=== PATIENT | female | born 1960 | race Caucasian/White ===

== ENCOUNTER 2016-10-23 07:13 | Emergency (ER) | payer MEDICARE, MEDICAID ==
[~2016-10-23] VITALS: Ht 157.5 cm; Wt 114.6 kg
[~2016-10-23 07:13] MED LIST: ATOR10TA64 PO; CARV6.2530 PO; CLOT15CR4 TOP; CYCL-83 PO; DIPH25CA84 PO; FURO40TA70 PO; HYDR-4072 PO; LAMO200T6 PO; LEVE1000 PO; LORA10CA3 PO; LOSA50TA52 PO; NYST1POW4 TOP; OXCA300T PO; OXYC1TAB8 PO; POLY17PO6 PO; POTA10TA92 PO; PROM-21 PO; ROPI1TAB12 PO; SENN8.6T94 PO; WARF5TAB76 PO; WARF6TAB23 PO
[2016-10-23 07:18] VITALS: Ht 157.5 cm; Wt 114.6 kg
--- OUTSIDE RECORDS SUMMARY | 2016-10-23 07:26 | XMS REPORT | Continuity of Care Document ---
Author Author [facility] Organization [facility] Address Unknown Phone Unavailable Support Name Relationship Address Phone KIRILL BARKER MD Caregiver [address] [place] [phone] CHONG BRANHAM MD Caregiver [address] [place] [address] [place] [phone] LUDAALBINO MOSSWhitney Next Of Kin [address] [facility] [place] [address] Insurance Providers Payer Name Policy Number Subscriber Name Relationship Medicare [id number] Sushant Jensen 20 Self Suzanne [employer] [id number] Sushant Jensen 20 Self Advance Directives Directive Response Recorded Date/Time Advanced Directives Type Unable to Obtain 08/12/14 1:11pm Problems Medical Problems Problem Onset Date Status HEADACHE, LEG PAIN Unknown Active Headache Unknown Active bilateral leg pain Unknown Active R TRAPEZIUS STRAIN/SPASM Unknown Active right trapezius strain Unknown Active Chest wall pain Unknown Active Headache Unknown Active Acute bronchitis Unknown Active Chest wall pain Unknown Active UTI (lower urinary tract infection) Unknown Active Back pain Unknown Active Back muscle spasm Unknown Active UTI (lower urinary tract infection) Unknown Active Headache Unknown Active Tremor Unknown Active Headache Unknown Active Medications Medication Dose Route Sig Days/Qty Instructions Order Date Discontinued Date Status Baclofen 10 Mg PO THREE TIMES A DAY 03/10/09 04/24/09 Discontinued Loratadine 10 Mg PO DAILY 09/08/08 07/21/09 Discontinued Carvedilol Phosphate 6.25 Mg PO TWICE A DAY 03/03/10 09/16/10 Discontinued Warfarin Sodium 5 Mg PO DAILY 09/08/08 04/24/09 Discontinued Tolterodine Tartrate 4 Mg PO DAILY 09/08/08 06/02/09 Discontinued Cyclobenzaprine Hcl 10 Mg PO THREE TIMES A DAY 11/17/09 03/03/10 Discontinued Hydrochlorothiazide 50 Mg PO DAILY 09/08/08 07/21/09 Discontinued Lamotrigine 100 Mg PO TWICE A DAY 09/08/08 04/24/09 Discontinued Fluoride Ion/Multivitamins 1 Mg PO DAILY 09/12/09 11/05/09 Discontinued Pantoprazole Sodium 40 Mg PO DAILY 09/08/08 09/12/09 Discontinued Metoclopramide Hcl 10 Mg PO THREE TIMES A DAY 09/08/08 04/24/09 Discontinued [Stool Softner] DAILY 09/08/08 04/24/09 Discontinued Acetaminophen 650 Mg PO NEEDED 09/08/08 07/21/09 Discontinued Hydrocodone Bit/Acetaminophen 1 Tab PO NEEDED 03/10/09 06/02/09 Discontinued Trospium Chloride 20 Mg PO TWICE A DAY 03/10/09 06/02/09 Discontinued Lamotrigine 200 Mg PO TWICE A DAY 03/03/10 Active Warfarin Sodium 7.5 Mg PO DAILY 03/10/09 06/02/09 Discontinued Baclofen 10 Mg PO THREE TIMES A DAY 03/10/09 06/02/09 Discontinued [Senokot] 03/10/09 07/21/09 Discontinued Potassium Chloride 20 Meq PO DAILY 03/10/09 07/21/09 Discontinued Mometasone Furoate 17 Gm NS TWICE A DAY 11/17/09 03/03/10 Discontinued Warfarin Sodium 5 Mg PO DAILY 06/02/09 07/21/09 Discontinued Pregabalin 75 Mg PO TWICE A DAY 06/02/09 07/21/09 Discontinued Loratadine 1 Tab PO DAILY 03/03/10 09/16/10 Discontinued Baclofen 10 Tab PO FOUR TIMES 11/17/09 03/03/10 Discontinued Warfarin Sodium 1 Tab PO DAILY 11/17/09 03/03/10 Discontinued Mometasone Furoate TWICE A DAY 07/21/09 09/12/09 Discontinued Levetiracetam 1 Tab PO QHS 09/12/09 11/05/09 Discontinued Potassium Chloride 1 Tab PO DAILY 03/03/10 08/23/11 Discontinued Furosemide 1 Tab PO DAILY 11/17/09 03/03/10 Discontinued Lisinopril 1 Tab PO DAILY 03/03/10 08/23/11 Discontinued Meclizine Hcl 1 Tab PO NEEDED 03/03/10 03/25/11 Discontinued Metronidazole/Skin Cleanser 1 Pkg TP DAILY 11/17/09 03/03/10 Discontinued Nystatin NEEDED 03/03/10 03/25/11 Discontinued Promethazine Hcl 1 Tab PO NEEDED 03/03/10 Active Trospium Chloride 1 Tab PO TWICE A DAY 11/17/09 03/03/10 Discontinued Hydrocodone Bit/Acetaminophen 1 Tab PO NEEDED 11/17/09 03/03/10 Discontinued [Veg-Lax] 1 Tab PO DAILY 07/21/09 09/12/09 Discontinued [Kapidex] 60 Mg PO DAILY 03/03/10 02/17/12 Discontinued Mometasone Furoate TWICE A DAY 11/17/09 03/03/10 Discontinued Enoxaparin Sodium 09/12/09 11/05/09 Discontinued Sennosides PO DAILY 09/12/09 11/05/09 Discontinued Azithromycin 250 Mg PO DAILY 09/12/09 11/05/09 Discontinued Gabapentin 300 Mg PO THREE TIMES A DAY 11/17/09 03/03/10 Discontinued Montelukast Sodium 10 Mg PO 09/12/09 11/05/09 Discontinued Levetiracetam 1 Tab PO TWICE A DAY 03/03/10 Active Sennosides 1 Tab PO DAILY 03/03/10 02/17/12 Discontinued Furosemide 1 Tab PO DAILY 11/17/09 03/03/10 Discontinued Warfarin Sodium 1 Tab PO 03/03/10 04/21/14 Discontinued [Methocarbamol] 500 NEEDED 11/17/09 03/03/10 Discontinued [Lortab 10] 10 Mg NEEDED 11/17/09 03/03/10 Discontinued Hydrocodone Bit/Acetaminophen 1 - 2 Tab PO NEEDED 03/03/10 Discontinued Warfarin Sodium 1 Tab PO BEDTIME 03/03/10 08/23/11 Discontinued Furosemide 1 Tab PO TWICE A DAY 03/03/10 Active Carvedilol 6.25 Mg PO TWICE A DAY 09/16/10 Active Loratadine 10 Mg PO DAILY 09/16/10 08/23/11 Discontinued Multivitamins 1 Tab PO DAILY 09/16/10 03/25/11 Discontinued Fexofenadine Hcl 30 Mg PO DAILY 09/16/10 08/23/11 Discontinued Potassium Chloride 10 Meq PO TWICE A DAY 08/23/11 Active Warfarin Sodium 6 Mg PO DAILY 08/23/11 Active Gabapentin 300 Mg PO DAILY 08/23/11 Active Benzonatate 200 Mg PO TWICE A DAY 08/23/11 08/21/12 Discontinued Esomeprazole Mag Trihydrate 20 Mg PO DAILY 08/23/11 Active Cyclobenzaprine Hcl 10 Mg PO TID PRN 08/23/11 Active Fexofenadine Hcl 180 Mg PO DAILY 08/23/11 08/21/12 Discontinued Nystatin TOP NEEDED 08/23/11 08/21/12 Discontinued Multivitamins 1 Tab PO DAILY 02/17/12 08/21/12 Discontinued Tramadol Hcl 50 Mg PO NEEDED 02/17/12 Active Melatonin/Pyridoxine 1 Tab PO BEDTIME 03/13/12 08/21/12 Discontinued Ketorolac Tromethamine 1 Tab PO NEEDED 20 Qty QID prn 08/21/12 Active Hydrocodone Bit/Acetaminophen 1 Tab PO EVERY 4-6 HOURS PRN PAIN 02/2706/15/13 Discontinued Losartan Potassium 50 Mg PO DAILY 02/27/13 Active Loratadine 10 Mg PO DAILY 02/27/13 Active Hydrocodone Bit/Acetaminophen 1 Each PO NEEDED 06/15/13 Active Baclofen 5 Mg PO THREE TIMES A DAY 06/15/13 Active Methocarbamol 750 Mg PO FOUR TIMES DAILY 04/21/14 Active Diclofenac Sodium 75 Mg PO TWICE DAILY WITH MEALS 20 Qty 04/21/14 Active Oxcarbazepine 300 Mg PO DAILY 08/12/14 Active Oxcarbazepine 600 Mg PO DAILY 08/12/14 Active Social History Social History Problem Response Recorded Date/Time Chewing Tobacco Status No 09/10/2013 4:07pm Hx Substance Use No 08/12/2014 2:49pm Hx Alcohol Use No 08/12/2014 2:49pm Tobacco Usage none 04/21/2014 8:45am Query Response Start Date Stop Date Smoking Status Unknown if ever smoked Hospital Discharge Instructions No hospital discharge instructions. Plan of Care No plan of care. Functional Status Query Response Date Recorded Physical Hygiene Self August 12, 2014 2:49pm Disabilities None August 12, 2014 2:49pm Devices Used None August 12, 2014 2:49pm Dressing Assist August 12, 2014 2:49pm Ambulation Assist August 12, 2014 2:49pm Diet Self August 12, 2014 2:49pm Mental Status Alert Oriented August 12, 2014 2:49pm Disabilities None August 12, 2014 2:49pm Devices Used None August 12, 2014 2:49pm Physical Hygiene Self August 12, 2014 2:49pm Dressing Assist August 12, 2014 2:49pm Ambulation Assist August 12, 2014 2:49pm Diet Self August 12, 2014 2:49pm Allergies, Adverse Reactions, Alerts Allergen Type Severity Reaction Status Last Updated Penicillin Allergy Unknown Active 08/12/14 Carisoprodol Allergy Unknown Active 08/12/14 Immunizations Name Given Type Hx Influenza Vaccination Y MAR 2012 Historical Hx Pneumococcal Vaccination Y 2008 Historical Hx Tetanus, Diptheria, Pertussis No Historical Hx Influenza Vaccination Y MAR 2012 Historical Hx Tetanus Diptheria Y 2008 Historical Hx Tetanus, Diptheria, Pertussis No Historical Hx Tetanus Toxoid Vaccination No Historical Vital Signs Acute Vital Signs Vital Response Date/Time Temperature (Fahrenheit) 97.8 deg F (96.8 - 99.1) Temperature (Calculated Celsius) 36.95079 degrees C (36.0 - 37.3) Pulse Rate (adult) 90 bpm (60 - 100) Respiratory Rate 18 breaths/min (10 - 20) O2 Sat by Pulse Oximetry 97 % (90 - 100) Blood Pressure 141/84 mm Hg Height 5 ft 3 in Weight 278 lb Body Mass Index 49.0 kg/m^2 Results Test Source Date Result Interp. Ref. Range Comments Activated Partial Thromboplast Time August 12, 2014 1:55pm 39.2 SEC H 24- 36 Alanine Aminotransferase (ALT/SGPT) August 12, 2014 1:55pm 23 U/L N 9-52 Albumin August 12, 2014 1:55pm 4.1 G/DL N 3.5-5.0 Albumin/Globulin Ratio August 12, 2014 1:55pm 1.1 RATIO N 1.1-2.2 Alkaline Phosphatase August 12, 2014 1:55pm 74 U/L N 38-126 Amylase Level April 21, 2014 9:03am < 30 U/L L 30-110 Anion Gap August 12, 2014 1:55pm 11 MEQ/L N 5-15 Aspartate Amino Transf (AST/SGOT) August 12, 2014 1:55pm 30 U/L N 14-36 B-Type Natriuretic Peptide March 25, 2011 4:12pm 17 PG/ML N 15-100 BUN/Creatinine Ratio August 12, 2014 1:55pm 19 RATIO N 6-26 Band Neutrophils # June 02, 2009 1:00pm 0.1 T/MM3 - Band Neutrophils % June 02, 2009 1:00pm 1.0 % N 0-6 Basophils # (Auto) August 12, 2014 1:55pm 0.0 T/MM3 N 0-0.2 Basophils (%) (Auto) August 12, 2014 1:55pm 0.4 % N 0-2 Blood Urea Nitrogen August 12, 2014 1:55pm 17.0 MG/DL N 7-17 Calcium Level August 12, 2014 1:55pm 9.5 MG/DL N 8.4-10.2 Calculated Osmolality August 12, 2014 1:55pm 277 MOSM/KG N 261-280 Carbon Dioxide Level August 12, 2014 1:55pm 28 MEQ/L N 22-30 Chemistry Specimen Hemolysis August 12, 2014 1:55pm 53 H 0-25 0-25: No Hemolysis.26-70: Slight Hemolysis - can falsely elevate K and Urine Protein. 71-285: Moderate Hemolysis - can falsely elevate K, Troponin I, CA 19-9, PTH, CSF GLucose, and Urine Protein, and can falsely decrease Phenytoin. 286-999: Gross Hemolysis - can falsely elevate K, Troponin I, CA 19-9, PTH, CSF Glucose, and Urine Protine, and can falsely decrease Phenytoin. Recommend specimen recollection. Chloride Level August 12, 2014 1:55pm 104 MEQ/L N 98-107 Conjugated Bilirubin February 17, 2012 11:45am 0.00 MG/DL N 0.00-0.30 Creatinine August 12, 2014 1:55pm 0.9 MG/DL N 0.7-1.2 Eosinophils # (Auto) August 12, 2014 1:55pm 0.5 T/MM3 N 0-0.5 Eosinophils # (Manual) June 02, 2009 1:00pm 0.8 T/MM3 H 0-0.5 Eosinophils % (Manual) June 02, 2009 1:00pm 11.0 % H 0-4 Eosinophils (%) (Auto) August 12, 2014 1:55pm 6.9 % H 0-4 Free Thyroxine March 25, 2011 4:12pm 1.04 NG/DL N 0.78-2.19 Globulin August 12, 2014 1:55pm 3.7 G/DL H 2.4-3.6 Glomerular Filtration Rate Calc August 12, 2014 1:55pm 66 - Glucose Level August 12, 2014 1:55pm 103 MG/DL N 65-110 Hematocrit August 12, 2014 1:55pm 41.6 % N 36-46 Hemoglobin August 12, 2014 1:55pm 13.7 GM/DL N 12-16 Icterus Index August 12, 2014 1:55pm < 2 0-7 Immature Granulocyte # (Auto) August 12, 2014 1:55pm 0.01 T/MM3 N 0.00- 0.03 Immature Granulocyte % (Auto) August 12, 2014 1:55pm 0.1 % N 0.0-0.5 Influenza Type A Antigen August 12, 2014 2:25pm Negative - Negative for Flu A protein antigen. Assay sensitivity is90%. Influenza Type B Antigen August 12, 2014 2:25pm Negative - Negative for Flu B protein antigen. Assay sensitivity is90%. Lab Scanned Report March 06, 2010 10:30am REFERENCE LAB [id number] - Lamotrigine (Lamictal) Level March 03, 2010 4:05pm Ref lab rpt scanned - --- 03/06/10 1244 ---LAMO previously reported as: SEND OUT Levetiracetam (Keppra) Level March 03, 2010 4:05pm Ref lab rpt scanned - --- 03/06/10 1244 ---LEVET previously reported as: SEND OUT Lipase April 21, 2014 9:03am 85 U/L N 23-300 Lymphocytes # (Auto) August 12, 2014 1:55pm 2.5 T/MM3 N 1-4.8 Lymphocytes # (Manual) June 02, 2009 1:00pm 2.3 T/MM3 N 1-4.8 Lymphocytes % (Manual) June 02, 2009 1:00pm 33.0 % N 23-45 Lymphocytes (%) (Auto) August 12, 2014 1:55pm 36.4 % N 23-45 Mean Corpuscular Hemoglobin August 12, 2014 1:55pm 29.9 UUG N 26-34 Mean Corpuscular Hemoglobin Concent August 12, 2014 1:55pm 32.9 GM/DL N 31-37 Mean Corpuscular Volume August 12, 2014 1:55pm 90.8 UM3 N 80-100 Mean Platelet Volume August 12, 2014 1:55pm 9.5 UM3 N 9.4-12.4 Monocytes # (Auto) August 12, 2014 1:55pm 0.7 T/MM3 N 0-0.8 Monocytes # (Manual) June 02, 2009 1:00pm 0.5 T/MM3 N 0-0.8 Monocytes % (Manual) June 02, 2009 1:00pm 7.0 % N 0-9.0 Monocytes (%) (Auto) August 12, 2014 1:55pm 9.6 % H 0-9.0 Neutrophils # (Auto) August 12, 2014 1:55pm 3.3 T/MM3 N 1.8-7.7 Neutrophils # (Manual) June 02, 2009 1:00pm 3.3 T/MM3 N 1.8-7.7 Neutrophils % (Manual) June 02, 2009 1:00pm 48.0 % N 33-66 Neutrophils (%) (Auto) August 12, 2014 1:55pm 46.6 % N 33-66 Platelet Count August 12, 2014 1:55pm 288 T/MM3 N 130-400 Potassium Level August 12, 2014 1:55pm 4.7 MEQ/L N 3.6-5 Prealbumin September 12, 2009 12:45pm 22.9 MG/DL N 17.6-36.0 Prolactin September 12, 2009 12:45pm 12.8 NG/ML - Male: 3.3 - 20.8 ng/ mLFemale: Premenopausal: 2.1 - 47.6 ng/mL, Postmenopausal: 0 - 41.4 ng/mL Prothromb Time International Ratio August 12, 2014 1:55pm 2.26 H 0.81- 1.09 THERAPUTIC RANGE=2.00-3.00 FOR ANTI-THROMBOSIS THERAPUTIC RANGE=2.50- 3.50 FOR IMPLANTED VALVE RDW Standard Deviation August 12, 2014 1:55pm 45.1 FL N 36.9-50.2 Red Blood Count August 12, 2014 1:55pm 4.58 M/MM3 N 4.00-5.20 Sodium Level August 12, 2014 1:55pm 143 MEQ/L N 134-144 Tests Not Done September 12, 2009 12:30pm Not done - Has specimen been collected/obtained? Y Thyroid Stimulating Hormone (TSH) March 25, 2011 4:12pm 1.50 MIU/L N 0.47-4.68 Total Bilirubin August 12, 2014 1:55pm 0.30 MG/DL N 0.20-1.30 Total Creatine Kinase April 11, 2009 11:13am 64 U/L N 30-135 Total Protein August 12, 2014 1:55pm 7.8 G/DL N 6.3-8.2 Troponin I August 12, 2014 1:55pm < 0.012 ng/ml 0-0.12 Turbidity August 12, 2014 1:55pm < 20 0-20 Unconjugated Bilirubin February 17, 2012 11:45am 0.00 MG/DL N 0.00- 1.10 Urinalysis Comment August 12, 2014 1:55pm Microscopic not ind. - Has specimen been collected/obtained? Y Urine Bacteria April 21, 2014 9:19am None seen - Has specimen been collected/obtained? Y Urine Bilirubin August 12, 2014 1:55pm Negative - Has specimen been collected/obtained? Y Urine Blood August 12, 2014 1:55pm Negative - Has specimen been collected/obtained? Y Urine Collection Type August 12, 2014 1:55pm Cleancatch-midstream - Has specimen been collected/obtained? Y Urine Color August 12, 2014 1:55pm Yellow - Has specimen been collected/obtained? Y Urine Culture Indicated February 17, 2012 10:48am Cult reflexed &setup - Has specimen been collected/obtained? Y Urine Glucose (UA) August 12, 2014 1:55pm Negative - Has specimen been collected/obtained? Y Urine Ketones August 12, 2014 1:55pm Negative - Has specimen been collected/obtained? Y Urine Leukocyte Esterase August 12, 2014 1:55pm Negative - Has specimen been collected/obtained? Y Urine Nitrite August 12, 2014 1:55pm Negative - Has specimen been collected/obtained? Y Urine Protein August 12, 2014 1:55pm Negative - Has specimen been collected/obtained? Y Urine RBC April 21, 2014 9:19am 0-1 /HPF - Has specimen been collected/obtained? Y Urine Specific [place] August 12, 2014 1:55pm 1.010 L - Has specimen been collected/obtained? Y Urine Squamous Epithelial Cells February 17, 2012 10:48am Many - Has specimen been collected/obtained? Y Urine Turbidity August 12, 2014 1:55pm Clear - Has specimen been collected/obtained? Y Urine Urobilinogen August 12, 2014 1:55pm 0.2 EU/DL - Has specimen been collected/obtained? Y Urine WBC April 21, 2014 9:19am 0-1 /HPF - Has specimen been collected/obtained? Y Urine pH August 12, 2014 1:55pm 6.5 - Has specimen been collected/ obtained? Y Vitamin B12 Level September 12, 2009 12:45pm 561 PG/ML N 239-931 White Blood Count August 12, 2014 1:55pm 7.0 T/MM3 N 4.5-11.0 Blood Culture Blood September 08, 2008 4:20pm NO GROWTH AFTER 5 DAYS Urine Culture Urine, Clean Catch Voided February 17, 2012 11:23am Diphtheroid Bacillus Procedures No known history of procedures. Encounters Encounter Location Date/Time Departed Emergency Room [facility] 08/12/14 1:11pm Recent Diagnosis
--- OUTSIDE RECORDS SUMMARY | 2016-10-23 07:26 | XMS REPORT | Continuity of Care Document ---
Author Author [facility] Organization [facility] Address Unknown Phone Unavailable Allergies Active Description Code Type Severity Reaction Onset Reported/Identified Relationship to Patient Clinical Status Yes carisoprodol carisoprodol Drug Allergy Unknown N/A 01/28/2009 Yes Penicillins Penicillins Drug Allergy Unknown N/A 01/28/2009 Yes morphine morphine Drug Allergy Unknown N/A 02/09/2009 Medications Problems Procedures Results Test Result Range PROTHROMBIN TIME WITH INR - 04/04/16 10:15 INTERNATIONAL NORMAL RATIO 1.4 0.9-1.1 PROTHROMBIN TIME 15.9 sec 10.0-12.9 Encounters ACCT No. Visit Date/Time Discharge Status Pt. Type Provider Facility Loc./Unit Complaint [id number] 08/08/2013 14:18:00 08/08/2013 23 :59:59 [facility] Outpatient
--- OUTSIDE RECORDS SUMMARY | 2016-10-23 07:27 | XMS REPORT | Continuity of Care Document ---
Author Author Organization Address Unknown Phone Unavailable Support Name Relationship Address Phone NATI HEMPHILL MD Caregiver [address] [place] [address] Unavailable CHONG BRANHAM MD Caregiver [address] [place] [address] [place] [address] Unavailable BLANQUITA LARES Next Of Kin [address] [place] [address] Insurance Providers Guarantor Sushant Jensen J Address [address] [place] [address] Phone [phone] - SISTER Email DENIED/08/05/16 Payer [facility] [employer] Policy Number [id number] Subscriber's Name Sushant Jensen Relationship 18 Self Effective Date 16 Expiration Date 16 Payer Medicare Policy Number [id number] Subscriber's Name Sushant Jensen Relationship 18 Self Effective Date 07 Chief Complaint and Reason for Visit Chief Complaint Dyspnea/Respdistress Reason for Visit [id number] Problems Active Problems Medical Problem Onset Date Status Acute bronchitis Unknown Acute Back muscle spasm Unknown Acute Back pain Unknown Acute Chest wall pain Unknown Acute Chest wall pain Unknown Acute Fibromyalgia affecting multiple sites Unknown Acute HEADACHE, LEG PAIN Unknown Acute Headache Unknown Acute Headache Unknown Acute Headache Unknown Acute Headache Unknown Acute Headache Unknown Acute R TRAPEZIUS STRAIN/SPASM Unknown Acute Tremor Unknown Acute UTI (lower urinary tract infection) Unknown Acute UTI (lower urinary tract infection) Unknown Acute bilateral leg pain Unknown Acute right trapezius strain Unknown Acute Past Problems Medical Problem Onset Date Abdominal pain Unknown Rib pain on left side Unknown Right otitis externa Unknown Viral syndrome Unknown Medications Current Home Medications Medication Dose Units Route Directions Days Qty Instructions Start Date Atorvastatin Calcium 10 Mg Tablet 10 Mg Oral Daily 07/26/15 Carvedilol (Coreg) 6.25 Mg Tablet 12.5 Mg Oral Twice A Day Clotrimazole/Betamethasone Dip (Lotrisone Cream) 15 Gm Cream..g. 1 Applic Topically Twice A Day 06/10/16 Cyclobenzaprine Hcl (Flexeril) 10 Mg Tablet 10 Mg Oral Three Times A Day as needed for Prn Orders 08/23/11 Diphenhydramine Hcl (Benadryl) 25 Mg Capsule 25-50 Mg Oral As Needed as needed for Allery Symptoms 07/26/15 Furosemide (Lasix) 40 Mg Tablet 60 Mg Oral Every Morning 03/03/10 Hydrocodone/Acetaminophen (Hydrocodon-Acetaminoph 7.5-325) 1 Each Tablet 1 Tab Oral Every 4 Hours as needed for Pain 07/26/15 Lamotrigine (Lamictal) 200 Mg Tablet 200 Mg Oral Twice A Day 02/04 Levetiracetam (Keppra) 1,000 Mg Tablet 1,000 Mg Oral Twice A Day 03/03/10 Loratadine (Claritin) 10 Mg Capsule 10 Mg Oral Daily 02/27/13 Losartan Potassium 50 Mg Tablet 50 Mg Oral Bedtime 02/27/13 Nystatin 1 Each Powder.ea. 1 Applic Topically As Needed as needed for Rash 12/03/14 Oxcarbazepine (Trileptal) 300 Mg Tablet 300 Mg Oral Twice A Day Take one tablet, by mouth, two times a day. 06/10/16 Oxycodone Hcl/Acetaminophen (Percocet 5-325 Mg Tablet) 5-325 Tablet 1-2 Tab Oral Every 6 Hr Prn as needed for Pain 30 Tablet Take 1 tablet, by mouth, every 4 hours as needed for pain. 06/12/16 Polyethylene Glycol 3350 (Miralax) 17 Gm Powd.pack 1 Packet Oral Daily 30 Packet 06/12/16 Potassium Chloride (Klor-Con 10) 10 Meq Tablet.sa 10 Meq Oral Twice A Day 08/23/11 Promethazine Hcl (Phenergan) 25 Mg Tablet 25 Mg Oral Four Times Daily as needed for Nausea 03/03/10 Ropinirole Hcl 1 Mg Tablet 1 Mg Oral Three Times A Day as needed for Prn Orders 12/20/15 Sennosides (Senokot) 8.6 Mg Tablet 8.6 Mg Oral Daily as needed for Constipation 07/26/15 Warfarin Sodium (Coumadin) 5 Mg Tablet 5 Mg Oral 3 Times A Week 06/11/16 Warfarin Sodium (Coumadin) 6 Mg Tablet 1 Tab Oral 4 Times A Week 90 Tablet 06/11/16 Past Home Medications Medication Directions Ordered Status Acetaminophen (Tylenol 8 Hour) 650 Mg Tablet.sa, 650 Mg Oral As Needed Discontinued Azithromycin 250 Mg Tablet, 250 Mg Oral Daily 07/26/15 Discontinued Azithromycin 250 Mg Tablet, 250 Mg Oral Daily 09/12/09 Discontinued Baclofen 10 Mg Tablet, 10 Tab Oral Four Times 11/17/09 Discontinued Baclofen 10 Mg Tablet, 10 Mg Oral Three Times A Day 03/10/09 Discontinued Baclofen 10 Mg Tablet, 10 Mg Oral Three Times A Day 03/10/09 Discontinued Benzonatate 200 Mg Capsule, 200 Mg Oral Three Times A Day as needed for Cough 07/26/15 Discontinued Benzonatate (Tessalon Perles 100MG) 100 Mg Capsule, 200 Mg Oral Twice A Day 08/23/11 Discontinued Carvedilol Phosphate (Coreg Cr) 10 Mg Cpmp.24hr, 6.25 Mg Oral Twice A Day 02/04 Discontinued Cephalexin (Keflex) 500 Mg Capsule, 1 Cap Oral Three Times A Day 08/31/15 Discontinued Cyclobenzaprine Hcl (Flexeril) 10 Mg Tablet, 10 Mg Oral Three Times A Day 19/03 Discontinued Diclofenac Sodium 75 Mg Tablet.dr, 1 Tab Oral Twice A Day 07/26/15 Discontinued Enoxaparin Sodium (Lovenox) 100 Mg/Ml Disp.syrin, 09/12/09 Discontinued Fexofenadine Hcl (Melina) 180 Mg Tablet, 180 Mg Oral Daily 08/23/11 Discontinued Fexofenadine Hcl (Melina) 30 Mg Tablet, 30 Mg Oral Daily 09/16/10 Discontinued Fluoride Ion/Multivitamins (Multi Vitamins W/Fl 1 Mg Tab) 1 Mg Tab.chew, 1 Mg Oral Daily 09/12/09 Discontinued Furosemide (Lasix) 40 Mg Tablet, 1 Tab Oral Daily 11/17/09 Discontinued Furosemide (Lasix) 20 Mg Tablet, 1 Tab Oral Daily 11/17/09 Discontinued Gabapentin 300 Mg Capsule, 300 Mg Oral Three Times A Day 11/17/09 Discontinued Hydrochlorothiazide 50 Mg Tablet, 50 Mg Oral Daily 09/08/08 Discontinued Hydrocodone Bit/Acetaminophen (Lortab 5) 1 Tab Tablet, 1 Tab Oral Every 4-6 Hours as needed for Pain 02/27/13 Discontinued Hydrocodone Bit/Acetaminophen ([place] 7.5/325 Tablet) 1 Tab Tablet, 1 - 2 Tab Oral As Needed 03/03/10 Discontinued Hydrocodone Bit/Acetaminophen ([place] 5/500 Capsule) 1 Cap Capsule, 1 Tab Oral As Needed 11/17/09 Discontinued Hydrocodone Bit/Acetaminophen (Vicodin 5/500 Tablet) 1 Tab Tablet, 1 Tab Oral As Needed 03/10/09 Discontinued Kapidex , 60 Mg Oral Daily 03/03/10 Discontinued Lamotrigine (Lamictal) 100 Mg Tablet, 100 Mg Oral Twice A Day 09/08/08 Discontinued Levetiracetam (Keppra) 500 Mg Tablet, 1 Tab Oral Qhs 09/12/09 Discontinued Lisinopril 10 Mg Tablet, 1 Tab Oral Daily 03/03/10 Discontinued Loratadine (Alavert) 10 Mg Tablet, 10 Mg Oral Daily 09/16/10 Discontinued Loratadine (Allergy Relief) 10 Mg Tablet, 1 Tab Oral Daily 03/03/10 Discontinued Loratadine (Claritin) 10 Mg Tablet, 10 Mg Oral Daily 09/08/08 Discontinued Lortab 10 , 10 Mg As Needed 11/17/09 Discontinued Meclizine Hcl 25 Mg Tablet, 1 Tab Oral As Needed 03/03/10 Discontinued Melatonin/Pyridoxine (Melatonin 3 Mg Tablet) 1 Tab Tablet, 1 Tab Oral Bedtime 03/13/12 Discontinued Methocarbamol , 500 As Needed 11/17/09 Discontinued Metoclopramide Hcl (Reglan) 10 Mg Tablet, 10 Mg Oral Three Times A Day Discontinued Metronidazole/Skin Cleanser (Metrogel 1% Kit) 1 Ea Combo..pkg, 1 Pkg Topical Daily 11/17/09 Discontinued Mometasone Furoate (Nasonex) 17 Gm [place], 17 Gm Nasal Twice A Day 11/17/09 Discontinued Mometasone Furoate ([place]) 15 Gm Cream.gm., Twice A Day 11/17/09 Discontinued Mometasone Furoate (El[place]) 15 Gm Cream.gm., Twice A Day 07/21/09 Discontinued Montelukast Sodium (Singulair) 10 Mg Tablet, 10 Mg Oral 09/12/09 Discontinued Multivitamins (Multivitamin) 1 Tab Tablet, 1 Tab Oral Daily 02/17/12 Discontinued Multivitamins (Multivitamin) 1 Tab Tablet, 1 Tab Oral Daily 09/16/10 Discontinued Nystatin (Nystop) 15 Gm Powder, Topically As Needed 08/23/11 Discontinued Nystatin (Nystop) 15 Gm Powder, As Needed 03/03/10 Discontinued Oxycodone Hcl/Acetaminophen (Percocet 5-325 Mg Tablet) 5-325 Tablet, 1-2 Tab Oral Every 6 Hr Prn as needed for Pain 06/10/16 Discontinued Pantoprazole Sodium (Protonix) 40 Mg Tablet.dr, 40 Mg Oral Daily 09/08/08 Discontinued Potassium Chloride (Klor-Con M20) 20 Meq Tab.prt.sr, 1 Tab Oral Daily Discontinued Potassium Chloride (K-Dur) 20 Meq Tab.prt.sr, 20 Meq Oral Daily 03/10/09 Discontinued Pregabalin (Lyrica) 75 Mg Capsule, 75 Mg Oral Twice A Day 06/02/09 Discontinued Sennosides (Vegetable Laxative) 8.6 Mg Tablet, 1 Tab Oral Daily 03/03/10 Discontinued Sennosides (Senna Lax) 8.6 Mg Tablet, Oral Daily 09/12/09 Discontinued Senokot , 03/10/09 Discontinued Stool Softner , Daily 09/08/08 Discontinued Tolterodine Tartrate (Detrol La) 4 Mg Cap.sr.24h, 4 Mg Oral Daily 09/08/08 Discontinued Trospium Chloride (Sanctura) 20 Mg Tablet, 1 Tab Oral Twice A Day 11/17/09 Discontinued Trospium Chloride (Sanctura) 20 Mg Tablet, 20 Mg Oral Twice A Day 03/10/09 Discontinued Veg-Lax Tablet, 1 Tab Oral Daily 07/21/09 Discontinued Warfarin Sodium 5 Mg Tablet, 1 Tab Oral 03/03/10 Discontinued Warfarin Sodium (Coumadin) 4 Mg Tablet, 1 Tab Oral Bedtime 03/03/10 Discontinued Warfarin Sodium (Coumadin) 6 Mg Tablet, 1 Tab Oral Daily 11/17/09 Discontinued Warfarin Sodium (Coumadin) 5 Mg Tablet, 5 Mg Oral Daily 06/02/09 Discontinued Warfarin Sodium (Coumadin) 7.5 Mg Tablet, 7.5 Mg Oral Daily 03/10/09 Discontinued Warfarin Sodium (Coumadin) 5 Mg Tablet, 5 Mg Oral Daily 09/08/08 Discontinued Social History Social History Problem Response Recorded Date/Time Onset Date Status Chewing Tobacco Status No 09/10/2013 4:07pm Not Applicable Not Applicable Hx Substance Use No 08/05/2016 12:32am Not Applicable Not Applicable Hx Alcohol Use No 08/05/2016 12:32am Not Applicable Not Applicable Tobacco Usage none 04/21/2014 8:45am Not Applicable Not Applicable Query Response Start Date Stop Date Smoking Status Never smoker Hospital Discharge Instructions No hospital discharge instructions. Plan of Care Discharge Date 08/05/16 2:30am Disposition 01 DISCHARGED HOME, SELF-CARE Condition at Discharge Improved Instructions/Education Provided Viral Syndrome (ED) Prescriptions See Medication Section Referrals CHONG BRANHAM MD Address: [address] [place] [address] [place] [phone] Additional Instructions/Education Take your routine medications as prescribed Albuterol nebulized treatments at least 4 times daily as needed for shortness of breath See your doctor later this week if not improving Care Plan and Goals Physician Care Plan Problem: Viral syndrome with dyspnea, positional leg edema Goal: Follow up with primary care provider Instructions: Take medications and follow care plan as discussed/written Take your routine medications as prescribed Albuterol nebulized treatments at least 4 times daily as needed for shortness of breath See your doctor later this week if not improving Functional Status No functional status results. Allergies, Adverse Reactions, Alerts Allergen Type Severity Reaction Status Last Updated Penicillin Allergy Unknown Active 08/05/16 Immunizations Query Response on File Recorded Date/Time Hx Influenza Vaccination Y 201406/11/16 10:27am Hx Pneumococcal Vaccination Y 201406/11/16 10:27am Hx Tetanus, Diptheria, Pertussis No 12/03/14 3:00pm Hx Influenza Vaccination Y 201406/11/16 10:27am Hx Tetanus Diptheria Y 200812/03/14 3:00pm Hx Tetanus, Diptheria, Pertussis No 12/03/14 3:00pm Hx Tetanus Toxoid Vaccination No 08/21/12 12:33pm Influenza Vaccine Hx FALL 201408/05/16 12:32am Tetanus Diptheria Vaccine History UNKNOWN 08/05/16 12:32am Vital Signs Acute Vital Signs Vital Response Date/Time Temperature (Fahrenheit) 98.2 deg F (96.8 - 99.1) 08/05/2016 12:29am Temperature (Calculated Celsius) 36.94529 degrees C (36.0 - 37.3) 08/05/2016 12:29am Temperature Source Oral 06/13/2016 12:24pm Pulse Rate (adult) 70 bpm (60 - 100) 08/05/2016 2:30am Respiratory Rate 19 breaths/min (10 - 20) 08/05/2016 2:30am O2 Sat by Pulse Oximetry 95 % (90 - 100) 08/05/2016 2:30am Oxygen Delivery Method Room Air 06/13/2016 12:24pm Oxygen Delivery Method Room Air 06/13/2016 9:51am Oxygen Flow Rate 1.00 L/min 06/12/2016 10:00pm Fraction of Inspired Oxygen (FIO2) 21 % 06/12/2016 7:24pm Blood Pressure 148/65 mm Hg 08/05/2016 2:30am Blood Pressure Source Automatic Cuff 06/13/2016 12:24pm Height (Feet) 5 feet 08/05/2016 12:29am Height (Inches) 2.00 inches 08/05/2016 12:29am Weight (Kilograms) 119.600 kg 08/05/2016 12:29am Body Mass Index (BMI) 48.0 08/05/2016 12:29am Results Laboratory Results Test Name Result Units Flags Reference Collection Date/Time Result Date/ Time Comments White Blood Count 6.1 T/MM3 4.5-11.0 08/05/2016 12:57am 08/05/2016 1: 08am Red Blood Count 4.39 M/MM3 4.00-5.20 08/05/2016 12:57am 08/05/2016 1: 08am Hemoglobin 13.3 GM/DL 12-16 08/05/2016 12:57am 08/05/2016 1:08am Hematocrit 40.0 % 36-46 08/05/2016 12:57am 08/05/2016 1:08am Mean Corpuscular Volume 91.1 UM3 80-100 08/05/2016 12:57am 08/05/2016 1 :08am Mean Corpuscular Hemoglobin 30.3 UUG 26-34 08/05/2016 12:57am 2016 1:08am Mean Corpuscular Hemoglobin Concent 33.3 GM/DL 31-37 08/05/2016 12:57am 08/05/2016 1:08am RDW Standard Deviation 45.9 FL 36.9-50.2 08/05/2016 12:57am 08/05/2016 1:08am Platelet Count 296 T/MM3 130-400 08/05/2016 12:57am 08/05/2016 1:08am Mean Platelet Volume 10.2 UM3 9.4-12.4 08/05/2016 12:57am 08/05/2016 1: 08am Neutrophils (%) (Auto) 33.8 % 33-66 08/05/2016 12:57am 08/05/2016 1: 08am Lymphocytes (%) (Auto) 51.0 % H 23-45 08/05/2016 12:57am 08/05/2016 1: 08am Monocytes (%) (Auto) 8.2 % 0-9.0 08/05/2016 12:57am 08/05/2016 1:08am Eosinophils (%) (Auto) 6.7 % H 0-4 08/05/2016 12:57am 08/05/2016 1:08am Basophils (%) (Auto) 0.3 % 0-2 08/05/2016 12:57am 08/05/2016 1:08am Immature Granulocyte % (Auto) 0.0 % 0.0-0.5 08/05/2016 12:57am 2016 1:08am Absolute Neutrophils (auto) 2.1 T/MM3 1.8-7.7 08/05/2016 12:57am 2016 1:08am Absolute Lymphocytes (auto) 3.1 T/MM3 1-4.8 08/05/2016 12:57am 2016 1:08am Absolute Monocytes (auto) 0.5 T/MM3 0-0.8 08/05/2016 12:57am 2016 1:08am Absolute Eosinophils (auto) 0.4 T/MM3 0-0.5 08/05/2016 12:57am 2016 1:08am Absolute Basophils (auto) 0.0 T/MM3 0-0.2 08/05/2016 12:57am 2016 1:08am Absolute Immature Granulocyte (auto 0.00 T/MM3 0.00-0.03 08/05/2016 12: 57am 08/05/2016 1:08am Prothromb Time International Ratio 2.23 H 0.76-1.04 08/05/2016 12:57am 08/05/2016 2:11am THERAPUTIC RANGE=2.00-3.00 FOR ANTI-THROMBOSIS THERAPUTIC RANGE=2.50-3.50 FOR IMPLANTED VALVE Icterus Index < 2 0-7 08/05/2016 1:08/05/2016 1:59am --- 08/05 --- ICTERUS previously reported as: < 2 Chemistry Specimen Hemolysis 71 H 0-25 08/05/2016 1:08/05/2016 1: 59am --- 08/05/16157 --- HEMOLYSIS previously reported as: 71 H 71-285: Specimen Exhibited Moderate Hemolysis - can falsely elevate K (Potassium), Troponin I, CA 19-9, PTH, CSF Glucose, Urine Protein, and can falsely decrease Phenytoin. Turbidity < 20 0-20 08/05/2016 1:08/05/2016 1:59am --- 157 --- TURBIDITY previously reported as: < 20 Sodium Level 140 MEQ/L 134-144 08/05/2016 1:08/05/2016 1:57am Potassium Level 6.0 MEQ/L H 3.6-5 08/05/2016 1:08/05/2016 1:59am 286-9999: Specimen Exhibited Gross Hemolysis - can falsely elevate K (Potassium), Troponin I, CA 19-9. PTH, CSF Glucose, Urine Protein, and falsely decrease Phenytoin. Recommend specimen recollection. Chloride Level 109 MEQ/L H 98-107 08/05/2016 1:08/05/2016 1:40am Carbon Dioxide Level 24 MEQ/L 22-30 08/05/2016 1:08/05/2016 1: 40am Anion Gap 7 MEQ/L 5-15 08/05/2016 1:08/05/2016 1:57am Blood Urea Nitrogen 16.0 MG/DL 7-17 08/05/2016 1:08/05/2016 1: 40am Creatinine 0.8 MG/DL 0.7-1.2 08/05/2016 1:08/05/2016 1:40am BUN/Creatinine Ratio 20 RATIO 6-26 08/05/2016 1:08/05/2016 1:40am Glomerular Filtration Rate Calc 75 08/05/2016 1:08/05/2016 1: 40am Glucose Level 102 MG/DL 65-110 08/05/2016 1:08/05/2016 1:40am Calculated Osmolality 270 MOSM/KG 261-280 08/05/2016 1:08/05/2016 1:57am Calcium Level 9.3 MG/DL 8.4-10.2 08/05/2016 1:08/05/2016 1:40am Total Bilirubin 0.50 MG/DL 0.20-1.30 08/05/2016 1:08/05/2016 1: 40am Alkaline Phosphatase 70 U/L 38-126 08/05/2016 1:08/05/2016 1:57am Total Protein 7.0 G/DL 6.3-8.2 08/05/2016 1:08/05/2016 1:40am Albumin 3.8 G/DL 3.5-5.0 08/05/2016 1:08/05/2016 1:40am Globulin 3.2 G/DL 2.4-3.6 08/05/2016 1:08/05/2016 1:40am Albumin/Globulin Ratio 1.2 RATIO 1.1-2.2 08/05/2016 1:08/05/2016 1 :40am Aspartate Amino Transf (AST/SGOT) 30 U/L 14-36 08/05/2016 1:2016 1:40am Alanine Aminotransferase (ALT/SGPT) 9 U/L 9-52 08/05/2016 1:2016 1:57am Troponin I < 0.012 ng/ml 0-0.12 08/05/2016 1:08/05/2016 1:52am Troponin values with a difference of 55% increase from orginal troponin value represent a true biological DELTA value. (%increase Calc=Orginal Troponin value, divided by subsequent Troponin value, multiplied by 100) QV-Iyn-U-Type Natriuretic Peptide 74 PG/ML 0-175 08/05/2016 1:06/2016 1:52am Rule in cut points: <50 years old=450; 50-75 years old=900; >75 years old=1800; When utilizing ProBNP rule-in cut points, adjustment for impaired renal function is typically not required. Influenza Type A Antigen NEGATIVE NEGATIVE 08/05/2016 12:57am 2016 1:31am Negative for Flu A protein antigen. Assay sensitivity is 90%. Influenza Type B Antigen NEGATIVE NEGATIVE 08/05/2016 12:57am 2016 1:31am Negative for Flu B protein antigen. Assay sensitivity is 90%. Procedures Procedure Status Date Provider(s) Routine venipuncture Completed 06/12/16 Routine venipuncture Completed 06/12/16 Lap inc hernia repair Completed 06/12/16 JONATHAN SAHNI MD, FACS, CWS Metabolic panel total ca Completed 06/12/16 Complete cbc w/auto diff wbc Completed 06/12/16 Prothrombin time Completed 06/12/16 Prothrombin time Completed 06/12/16 [id number] ITEM OR SERVICE Completed 06/12/16 [id number] ITEM OR SERVICE Completed 06/12/16 [id number] ITEM OR SERVICE Completed 06/12/16 [id number] ITEM OR SERVICE Completed 06/12/16 [id number] ITEM OR SERVICE Completed 06/12/16 [id number] ITEM OR SERVICE Completed 06/12/16 [id number] ITEM OR SERVICE Completed 06/12/16 [id number] ITEM OR SERVICE Completed 06/12/16 [id number] ITEM OR SERVICE Completed 06/12/16 [id number] ITEM OR SERVICE Completed 06/12/16 [id number] ITEM OR SERVICE Completed 06/12/16 [id number] ITEM OR SERVICE Completed 06/12/16 [id number] ITEM OR SERVICE Completed 06/12/16 [id number] ITEM OR SERVICE Completed 06/12/16 [id number] ITEM OR SERVICE Completed 06/12/16 [id number] ITEM OR SERVICE Completed 06/12/16 [id number] ITEM OR SERVICE Completed 06/12/16 [id number] ITEM OR SERVICE Completed 06/12/16 [id number] ITEM OR SERVICE Completed 06/12/16 [id number] ITEM OR SERVICE Completed 06/12/16 [id number] ITEM OR SERVICE Completed 06/12/16 [id number] ITEM OR SERVICE Completed 06/12/16 [id number] ITEM OR SERVICE Completed 06/12/16 [id number] ITEM OR SERVICE Completed 06/12/16 [id number]"INJECTION, HYDROMORPHONE, UP TO 4 MG" Completed 06/12/16"INJECTION, HYDROMORPHONE, UP TO 4 MG" Completed 06/12/16"INJECTION, HYDROMORPHONE, UP TO 4 MG" Completed 06/12/16"INJECTION, ERTAPENEM SODIUM, 500 MG" Completed 06/12/16"INJECTION, ENOXAPARIN SODIUM, 10 MG" Completed 06/12/16"INJECTION, KETOROLAC TROMETHAMINE, PER 15 MG" Completed 06/12/16"INJECTION, KETOROLAC TROMETHAMINE, PER 15 MG" Completed 06/12/16"INJECTION, KETOROLAC TROMETHAMINE, PER 15 MG" Completed 06/12/16"INJECTION, ONDANSETRON HYDROCHLORIDE, PER 1 MG" Completed 06/12/16"INJECTION, ONDANSETRON HYDROCHLORIDE, PER 1 MG" Completed 06/12/16 PROPOFOL INJ 500 MG/50ML Completed 06/12/16 PROPOFOL INJ 500 MG/50ML Completed 06/12/16"INJECTION, FENTANYL CITRATE, 0.1 MG" Completed 06/12/16"INFUSION, NORMAL SALINE SOLUTION , 250 CC" Completed 06/12/16"RINGERS LACTATE INFUSION, UP TO 1000 CC" Completed 06/12/16"RINGERS LACTATE INFUSION, UP TO 1000 CC" Completed 06/12/16753659WP ADDITION TO CODE FOR PRIMARY PROCEDURE) Completed 06/12/16 JONATHAN SAHNI MD, FACS, CWS Encounters Encounter Location Arrival/Admit Date Discharge/Depart Date Attending Provider Departed Emergency Room 08/05/16 12:17am 08/05/16 2: 30am NATI HEMPHILL MD Departed [facility] 06/12/16 8:42am 06/13/16 1: 15pm JONATHAN SAHNI FACS CWS Recent Diagnosis
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
--- OUTSIDE RECORDS SUMMARY | 2016-10-23 07:28 | XMS REPORT | Continuity of Care Document ---
Author Author [facility] Organization [facility] Address Unknown Phone Unavailable Support Name Relationship Address Phone KIRILL BARKER MD Caregiver [address] [place] [address] CHONG BRANHAM MD Caregiver [address] [place] [phone] BLANQUITA LARES Next Of Kin [address] [place] [address] Insurance Providers Payer Name Policy Number Subscriber Name Relationship Medicare [id number] Sushant Jensen 20 Self Suzanne [employer] [id number] Sushant Jensen 20 Self Problems Medical Problems Problem Onset Date Status [...] UTI (lower urinary tract infection) Unknown Active Medications Medication Dose Route Sig [...] 1 Tab PO BEDTIME 03/13/12 08/21/12 Discontinued Meclizine Hcl 12.5 Mg PO NEEDED 08/21/12 Active Ketorolac Tromethamine 1 Tab PO NEEDED 20 [...] DAILY WITH MEALS 20 Qty 04/21/14 Active Fosfomycin Tromethamine 1 Packet PO ONETIME 1 Qty 04/21/14 Active Social History Social History Problem Response Recorded Date/Time Smoking Status Never smoker 04/21/2014 8:07am Chewing Tobacco Status No 09/10/2013 4:07pm Hx Substance Use No 04/21/2014 8:07am Hx Alcohol Use No 04/21/2014 8:07am Query Response Start Date Stop Date Smoking Status Unknown if ever smoked Hospital Discharge Instructions No hospital discharge instructions. Plan of Care No plan of care. Functional Status Query Response Date Recorded Physical Hygiene Self April 21, 2014 8:07am Disabilities None April 21, 2014 8:07am Devices Used None April 21, 2014 8:07am Dressing Self April 21, 2014 8:07am Ambulation Assist April 21, 2014 8:07am Diet Self April 21, 2014 8:07am Mental Status Alert April 21, 2014 11:02am Disabilities None April 21, 2014 8:07am Devices Used None April 21, 2014 8:07am Physical Hygiene Self April 21, 2014 8:07am Dressing Self April 21, 2014 8:07am Ambulation Assist April 21, 2014 8:07am Diet Self April 21, 2014 8:07am Allergies, Adverse Reactions, Alerts Allergen Type Severity Reaction Status Last Updated Penicillin Allergy Unknown Active 04/21/14 Carisoprodol Allergy Unknown Active 04/21/14 Immunizations Name Given Type Hx Influenza Vaccination Y MAR 2012 Historical Hx Pneumococcal Vaccination Y 2008 Historical Hx Tetanus, Diptheria, Pertussis No Historical Hx Influenza Vaccination Y MAR 2012 Historical Hx Tetanus Diptheria Y 2008 Historical Hx Tetanus, Diptheria, Pertussis No Historical Hx Tetanus Toxoid Vaccination No Historical Vital Signs Acute Vital Signs Vital Response Date/Time Temperature (Fahrenheit) 97.6 deg F (96.8 - 99.1) Temperature (Calculated Celsius) 36.19004 degrees C (36.0 - 37.3) Pulse Rate (adult) 87 bpm (60 - 100) Respiratory Rate 20 breaths/min (10 - 20) O2 Sat by Pulse Oximetry 92 % (90 - 100) Blood Pressure 166/79 mm Hg Height 5 ft 3 in Weight 265 lb Body Mass Index 46.0 kg/m^2 Results Test Source Date Result Interp. Ref. Range Comments Activated Partial Thromboplast Time April 21, 2014 9:00am 43.3 SEC H 24-36 Alanine Aminotransferase (ALT/SGPT) April 21, 2014 9:03am 34 U/L N 9- 52 Albumin April 21, 2014 9:03am 3.9 G/DL N 3.5-5.0 Albumin/Globulin Ratio April 21, 2014 9:03am 1.2 RATIO N 1.1-2.2 Alkaline Phosphatase April 21, 2014 9:03am 77 U/L N 38-126 Amylase Level April 21, 2014 9:03am < 30 U/L L 30-110 Anion Gap April 21, 2014 9:03am 8 MEQ/L N 5-15 Aspartate Amino Transf (AST/SGOT) April 21, 2014 9:03am 23 U/L N 14- 36 B-Type Natriuretic Peptide March 25, 2011 4:12pm 17 PG/ML N 15-100 BUN/Creatinine Ratio April 21, 2014 9:03am 14 RATIO N 6-26 Band Neutrophils # June 02, 2009 1:00pm 0.1 T/MM3 - Band Neutrophils % June 02, 2009 1:00pm 1.0 % N 0-6 Basophils # (Auto) April 21, 2014 9:03am 0.0 T/MM3 N 0-0.2 Basophils (%) (Auto) April 21, 2014 9:03am 0.4 % N 0-2 Blood Urea Nitrogen April 21, 2014 9:03am 14.0 MG/DL N 7-17 Calcium Level April 21, 2014 9:03am 9.5 MG/DL N 8.4-10.2 Calculated Osmolality April 21, 2014 9:03am 272 MOSM/KG N 261-280 Carbon Dioxide Level April 21, 2014 9:03am 28 MEQ/L N 22-30 Chloride Level April 21, 2014 9:03am 105 MEQ/L N 98-107 Conjugated Bilirubin February 17, 2012 11:45am 0.00 MG/DL N 0.00-0.30 Creatinine April 21, 2014 9:03am 1.0 MG/DL N 0.7-1.2 Eosinophils # (Auto) April 21, 2014 9:03am 0.3 T/MM3 N 0-0.5 Eosinophils # (Manual) June 02, 2009 1:00pm 0.8 T/MM3 H 0-0.5 Eosinophils % (Manual) June 02, 2009 1:00pm 11.0 % H 0-4 Eosinophils (%) (Auto) April 21, 2014 9:03am 6.5 % H 0-4 Free Thyroxine March 25, 2011 4:12pm 1.04 NG/DL N 0.78-2.19 Globulin April 21, 2014 9:03am 3.3 G/DL N 2.4-3.6 Glucose Level April 21, 2014 9:03am 91 MG/DL N 65-110 Hematocrit April 21, 2014 9:03am 39.8 % N 36-46 Hemoglobin April 21, 2014 9:03am 13.0 GM/DL N 12-16 Influenza Type A Antigen September 10, 2013 5:18pm Negative - Negative for Flu A protein antigen. Assay sensitivity is90%. Influenza Type B Antigen September 10, 2013 5:18pm Negative - Negative for Flu B protein antigen. Assay sensitivity is90%. Lamotrigine (Lamictal) Level March 03, 2010 4:05pm Ref lab rpt scanned - --- 03/06/10 1244 ---LAMO previously reported as: SEND OUT Levetiracetam (Keppra) Level March 03, 2010 4:05pm Ref lab rpt scanned - --- 03/06/10 1244 ---LEVET previously reported as: SEND OUT Lipase April 21, 2014 9:03am 85 U/L N 23-300 Lymphocytes # (Auto) April 21, 2014 9:03am 2.3 T/MM3 N 1-4.8 Lymphocytes # (Manual) June 02, 2009 1:00pm 2.3 T/MM3 N 1-4.8 Lymphocytes % (Manual) June 02, 2009 1:00pm 33.0 % N 23-45 Lymphocytes (%) (Auto) April 21, 2014 9:03am 43.7 % N 23-45 Mean Corpuscular Hemoglobin April 21, 2014 9:03am 29.8 UUG N 26-34 Mean Corpuscular Hemoglobin Concent April 21, 2014 9:03am 32.7 GM/DL N 31-37 Mean Corpuscular Volume April 21, 2014 9:03am 91.3 UM3 N 80-100 Mean Platelet Volume April 21, 2014 9:03am 8.8 UM3 L 9.4-12.4 Monocytes # (Auto) April 21, 2014 9:03am 0.5 T/MM3 N 0-0.8 Monocytes # (Manual) June 02, 2009 1:00pm 0.5 T/MM3 N 0-0.8 Monocytes % (Manual) June 02, 2009 1:00pm 7.0 % N 0-9.0 Monocytes (%) (Auto) April 21, 2014 9:03am 9.0 % N 0-9.0 Neutrophils # (Auto) April 21, 2014 9:03am 2.1 T/MM3 N 1.8-7.7 Neutrophils # (Manual) June 02, 2009 1:00pm 3.3 T/MM3 N 1.8-7.7 Neutrophils % (Manual) June 02, 2009 1:00pm 48.0 % N 33-66 Neutrophils (%) (Auto) April 21, 2014 9:03am 40.4 % N 33-66 Platelet Count April 21, 2014 9:03am 237 T/MM3 N 130-400 Potassium Level April 21, 2014 9:03am 4.2 MEQ/L N 3.6-5 Prealbumin September 12, 2009 12:45pm 22.9 MG/DL N 17.6-36.0 Prolactin September 12, 2009 12:45pm 12.8 NG/ML - Male: 3.3 - 20.8 ng/ mLFemale: Premenopausal: 2.1 - 47.6 ng/mL, Postmenopausal: 0 - 41.4 ng/mL Prothromb Time International Ratio April 21, 2014 9:00am 3.05 H 0.81- 1.09 THERAPUTIC RANGE=2.00-3.00 FOR ANTI-THROMBOSIS THERAPUTIC RANGE=2.50- 3.50 FOR IMPLANTED VALVE RDW Standard Deviation April 21, 2014 9:03am 47.2 FL N 36.9-50.2 Red Blood Count April 21, 2014 9:03am 4.36 M/MM3 N 4.00-5.20 Sodium Level April 21, 2014 9:03am 141 MEQ/L N 134-144 Tests Not Done September 12, 2009 12:30pm Not done - Has specimen been collected/obtained? Y Thyroid Stimulating Hormone (TSH) March 25, 2011 4:12pm 1.50 MIU/L N 0.47-4.68 Total Bilirubin April 21, 2014 9:03am 0.50 MG/DL N 0.20-1.30 Total Creatine Kinase April 11, 2009 11:13am 64 U/L N 30-135 Total Protein April 21, 2014 9:03am 7.2 G/DL N 6.3-8.2 Troponin I September 10, 2013 5:18pm < 0.012 ng/ml 0-0.12 Unconjugated Bilirubin February 17, 2012 11:45am 0.00 MG/DL N 0.00- 1.10 Urine Bacteria April 21, 2014 9:19am None seen - Has specimen been collected/obtained? Y Urine Bilirubin April 21, 2014 9:19am Negative - Has specimen been collected/obtained? Y Urine Blood April 21, 2014 9:19am Negative - Has specimen been collected/obtained? Y Urine Collection Type April 21, 2014 9:19am Voided-not cc-midstr - Has specimen been collected/obtained? Y Urine Color April 21, 2014 9:19am Yellow - Has specimen been collected/obtained? Y Urine Culture Indicated February 17, 2012 10:48am Cult reflexed &setup - Has specimen been collected/obtained? Y Urine Glucose (UA) April 21, 2014 9:19am Negative - Has specimen been collected/obtained? Y Urine Ketones April 21, 2014 9:19am Negative - Has specimen been collected/obtained? Y Urine Leukocyte Esterase April 21, 2014 9:19am 1+ H - Has specimen been collected/obtained? Y Urine Nitrite April 21, 2014 9:19am Negative - Has specimen been collected/obtained? Y Urine Protein April 21, 2014 9:19am Negative - Has specimen been collected/obtained? Y Urine RBC April 21, 2014 9:19am 0-1 /HPF - Has specimen been collected/obtained? Y Urine Specific [place] April 21, 2014 9:19am <=1.005 L - Has specimen been collected/obtained? Y Urine Squamous Epithelial Cells February 17, 2012 10:48am Many - Has specimen been collected/obtained? Y Urine Turbidity April 21, 2014 9:19am Clear - Has specimen been collected/obtained? Y Urine Urobilinogen April 21, 2014 9:19am 0.2 EU/DL - Has specimen been collected/obtained? Y Urine WBC April 21, 2014 9:19am 0-1 /HPF - Has specimen been collected/obtained? Y Urine pH April 21, 2014 9:19am 7.0 - Has specimen been collected/ obtained? Y Vitamin B12 Level September 12, 2009 12:45pm 561 PG/ML N 239-931 White Blood Count April 21, 2014 9:03am 5.2 T/MM3 N 4.5-11.0 Chemistry Specimen Hemolysis April 21, 2014 9:03am < 15 0-25 0-25 : No Hemolysis.26-70: Slight Hemolysis - can falsely elevate K and Urine Protein. 71-285: Moderate Hemolysis - can falsely elevate K, Troponin I, CA 19-9, PTH, CSF GLucose, and Urine Protein, and can falsely decrease Phenytoin. 286-999: Gross Hemolysis - can falsely elevate K, Troponin I, CA 19-9, PTH, CSF Glucose, and Urine Protine, and can falsely decrease Phenytoin. Recommend specimen recollection. Urinalysis Comment September 10, 2013 4:20pm Microscopic not ind. - Has specimen been collected/obtained? Y Lab Scanned Report March 06, 2010 10:30am REFER[facility] LAB [id number] - Turbidity April 21, 2014 9:03am < 20 0-20 Glomerular Filtration Rate Calc April 21, 2014 9:03am 58 - Immature Granulocyte # (Auto) April 21, 2014 9:03am 0.00 T/MM3 N 0.00 -0.03 Immature Granulocyte % (Auto) April 21, 2014 9:03am 0.0 % N 0.0-0.5 Icterus Index April 21, 2014 9:03am < 2 0-7 Blood Culture Blood September 08, 2008 4:20pm NO GROWTH AFTER 5 DAYS Urine Culture Urine, Clean Catch Voided February 17, 2012 11:23am Diphtheroid Bacillus Procedures No known history of procedures. Encounters Encounter Location Date/Time Departed Emergency Room [facility] 04/21/14 7:52am Recent Diagnosis
--- OUTSIDE RECORDS SUMMARY | 2016-10-23 07:42 | XMS REPORT | Continuity of Care Document ---
Author Author [facility] Organization [facility] Address Unknown Phone Unavailable Support Name Relationship Address Phone KIRILL BARKER MD Caregiver [address] [place] [phone] CHONG BRANHAM MD Caregiver [address] [place] [address] [place] [phone] LUDAALBINO MOSSWhitney Next Of Kin [address] [place] [address] Insurance Providers Payer Name Policy Number Subscriber Name Relationship Medicare [id number] Sushant Jensen 20 Self Suzanne [employer] [id number] Sushant Jensen 20 Self Advance Directives Directive [...] F (96.8 - 99.1) Temperature (Calculated Celsius) 36.21552 degrees C (36.0 - 37.3) Pulse Rate [...] Report March 06, 2010 10:30am [facility] [id number] - Lamotrigine (Lamictal) Level March 03, 2010 [...] Has specimen been collected/obtained? Y Urine Specific [place] August 12, 2014 1:55pm 1.010 L - [...] Encounters Encounter Location Date/Time Departed Emergency Room [facility] 08/12/14 1:11pm Recent Diagnosis
--- OUTSIDE RECORDS SUMMARY | 2016-10-23 07:43 | XMS REPORT | Continuity of Care Document ---
Author Author [facility] Organization [facility] Address Unknown Phone Unavailable Allergies Active Description [...] Status Pt. Type Provider Facility Loc./Unit Complaint [id number] 08/08/2013 14:18:00 08/08/2013 23 :59:59 [facility] Outpatient
--- OUTSIDE RECORDS SUMMARY | 2016-10-23 07:45 | XMS REPORT | Continuity of Care Document ---
Author Author [facility] Organization [facility] Address Unknown Phone Unavailable Support Name Relationship Address Phone KIRILL BARKER MD Caregiver [address] [place] [address] CHONG BRANHAM MD Caregiver [address] [place] [phone] BLANQUITA LARES Next Of Kin [address] [place] [address] Insurance Providers Payer Name Policy Number Subscriber Name Relationship Medicare [id number] Sushant Jensen 20 Self Suzanne [employer] [id number] Sushant Jensen 20 Self Problems Medical Problems [...] F (96.8 - 99.1) Temperature (Calculated Celsius) 36.36788 degrees C (36.0 - 37.3) Pulse Rate [...] Has specimen been collected/obtained? Y Urine Specific [place] April 21, 2014 9:19am <=1.005 L - [...] Report March 06, 2010 10:30am [facility] [id number] - Turbidity April 21, 2014 9:03am < [...] Encounters Encounter Location Date/Time Departed Emergency Room [facility] 04/21/14 7:52am Recent Diagnosis
--- NOTE | 2016-10-23 07:57 | NUR ---
RADIOLOGY PT TO RADIOLOGY PER CART
--- NOTE | 2016-10-23 08:09 | ERPDOC ---
Departure Disposition Decision Date: October 23, 2016 Disposition Decision Time: 09:00 Disposition: 02 TO [facility] Impression Impression Impression: Primary Impression: Lumbar vertebral fracture Encounter type: initial encounter Lumbar vertebra fracture level: L2 Fracture type: closed Fracture morphology: unspecified fracture morphology Qualified Codes: S32.029A - Unspecified fracture of second lumbar vertebra, initial encounter for closed fracture Severity: Moderate Condition: Improved Seen By: Physician only Referrals: CHONG BRANHAM MD (Family) Problems/Meds/Labs Reviewed?: Yes Medications reviewed and manag: Yes Follow up care ordered?: Yes Mental Status: Alert, Oriented Critical Care Note Total Time (mins): 37 Critical Care Spent: Rdni-cr-mxst care of pt, Reviewing test results, Discuss the case w/staff, Documenting the MR, Discussion w/ family/DPOA During this visit the pt was: At Risk of Deterioration HPI - Fall/Injury General Chief Complaint: Fall Stated Complaint: SHOULDER, BACK, LEG PAIN Time Seen by Provider: 07:24 Source: patient, family Exam Limitations: no limitations HPI - Fall/Injury Initial Comments 56-year-old female presents to the emergency department with a chief complaint of a fall down 3 stairs yesterday while carrying a birdcage. Patient states that she tripped after the birdcage shift causing her to lose her balance. Patient notes hitting her back in the fall. Patient is complaining of back pain along with head and neck pain. Patient describes her pain as moderate. Pain is dull. No radiation. Pain improves with rest and positioning and increases with movement. Patient denies any other complaints or associated symptoms. She was at home when the symptoms began. Symptoms have been persistent in nature since onset. She notes that she did take her typical doses of Percocet and Fajardo without improvement of symptoms. Occurred At: home Onset: Constant Allergies: Coded Allergies: Penicillins (Verified Allergy, Unknown, 10/23/16) Past History Past Medical History Metabolic: hypertension Respiratory: pneumonia GI: GERD, constipation Female: UTI, other Neurological: fibromyalgia, head injury, headaches, other, seizures Musculoskeletal: neck pain Hematologic: DVT, blood transfusion Psychological: anxiety Surgical History General: hernia, other, tonsils Reproductive/: tubal ligation Family History Family PMH: FOUND: cancer, diabetes Vaccines Hx Influenza Vaccination: Yes (2014) Hx Pneumococcal Vaccination: Yes (2014) Hx Tetanus Diptheria: Yes (2009) Hx Tetanus, Diptheria, Pertuss: No Social History Smoking Status: Never smoker Does patient use chewing tobac: No Second Hand Exposure: No Substance Use Type: does not use Substance last used: prior to arrival Alcohol Intake: none Housing: house Service: No Occupational Hazard: No Advance Directives: Yes Full Code Review of Systems Constitutional Constitutional: DENIES: chills, fever Eyes General: DENIES: erythema, exudate Lids/Accessories: DENIES: erythema, swelling Vision: DENIES: acuity, blurring ENMT Ears: DENIES: drainage, erythema Hearing: DENIES: hearing loss Balance: DENIES: ataxia, falling to one side Sinuses: DENIES: congestion, pain Nose: DENIES: nosebleeds, pain Mouth/Throat: DENIES: painful swallowing, sore throat Teeth: DENIES: pain Jaw: DENIES: pain Cardiovascular Cardiac: DENIES: chest pain, dyspnea on exertion Rhythm/Rate: DENIES: irregular beat, palpitations Vascular: DENIES: pedal edema, unilateral swelling Pulmonary Respiratory: DENIES: cough, dyspnea, pleuritic chest pain, sputum GI Upper Abdomen: DENIES: nausea, pain, vomiting Lower Abdomen: DENIES: diarrhea, pain General: DENIES: dysuria, frequency, urgency Musculoskeletal General: tenderness, DENIES: joint pain Integumentary Skin: DENIES: itching, rash Neurological General: headache, DENIES: change in strength, numbness, weakness Psychiatric Psychiatric: DENIES: emotional instability, suicidal ideation/attempt Endocrine Endocrine: DENIES: polydipsia, polyphagia Hematologic/Lymphatic Hematologic/Lymphatic: DENIES: bleeding gums, frequent nosebleeds Allergic/Immunological Allergic/Immunoligical: DENIES: allergic reactions, hives Physical Exam General General Nourishment: well nourished, well developed, appears stated age, no acute distress, adult General Body Habitus: well groomed Vitals and Pain First Documented Vital Signs Date Time Temp Pulse Resp B/P Pulse Ox O2 Delivery O2 Flow Rate FiO2 10/23/16 07:18 98.3 91 18 191/108 95 Room Air Weight: Kilograms: 114.600 Height (feet): 5 Height (inches): 2.00 Triage Pain Scale: RN VS reviewed by Provider: Yes Normal Exams: Head: Normocephalic w/o trauma Eyes: Pupils are PERRLA w/ EOMI, No scleral icterus, irritation, or foreign bodies noted ENMT: No facial trauma, nasal exudates, pharyngeal erythema, or exudates are noted Dental: No fractured, loose, or missing teeth noted Neck: Full range of motion, without adenopathy, JVD, bruits or thyromegaly Chest/Resp: Clear all herzog, with good airflow, and symmetry bilaterally CV: Regular rate and rhythm, without murmur or gallop, Pulses 2+ all extremities, capillary refill, <2 seconds all ext., no pedal edema noted Abdomen: Bowel sounds positive, soft, non-tender, non-distended, no hepatosplenomegaly, masses or bruits noted Lymphatic: No lymphadenopathy, or lymphedema noted Musculoskeletal: No tenderness, or deformity noted, good range of motion, all extremities Integumentary: No rashes, hives, or bruising noted, hair and nails, without abnormality Neurologic: Patient is alert, and oriented, cranial nerves, motor/sensory/ cerebellar, exams w/o gross deficits, to observation Psychiatric: Patient exhibits, appropriate attention, emotion and affect Musculoskeletal (brief) Comments Generalized tenderness to palpation of the thoracic/lumbar spine. No step-off or deformity. No pain with palpation to the mid-line of the cervical spine. Pelvis is stable nontender to compression. Differential Diagnoses Considering: Other (sprain/strain/fracture/contusion) Progress Results/Orders Orders Procedure Category Date Status Time INR LAB 10/23/[address] Head W/O Contrast CT 10/23/16 Resulted 07:46 Ct Cervical Spine W/O CT 10/23/16 Resulted Contrast 07:46 Ct Thoracic Spine W/O CT 10/23/16 Resulted Contrast 07:46 Ct Lumbar Spine W/O CT 10/23/16 Resulted Contrast 07:46 Chest 1 View RAD 10/23/16 Resulted 07:46 Pelvis 1-2 View RAD 10/23/16 Resulted Dedicated Pelv 07:46 Morphine Sulfate PHA 10/23/16 Complete (Morphine) 09:45 Ondansetron Odt PHA 10/23/16 Complete (Zofran Odt) 09:45 Lab Results Laboratory Tests Test 10/23/16 08:00 Prothromb Time International Ratio 1.40 Medications Current ED Medications Morphine Sulfate (Morphine) 4 mg O ONCE IM Last administered on 5/19/17at 09: 45; Start 10/23/16 at 09:45; Stop 10/23/16 at 09:46; Status DC Ondansetron HCl (Zofran Odt) 4 mg O ONCE PO Last administered on 10/23/16 09: 43; Start 10/23/16 at 09:45; Stop 10/23/16 at 09:46; Status DC Progress Progress Labs / imaging were discussed in detail with the patient and family and questions are answered. Patient is given analgesic pain medication with improvement of symptoms. Patient is discussed with Dr. Donohue of [facility] and transfer to [facility] as a level II trauma was arranged. Patient and family are in agreement with the current plan of management. Spinal precautions were maintained in the emergency department. Patient was unable to be kept at [facility] as spinal coverage is not available. Patient and family are in agreement with the current plan of management. Risk versus benefit of transfer is discussed in detail with the patient and family and questions are answered. Patient is stable for transfer to [facility] at this time. 37 minutes of critical care time was assessed to the patient due to the potential for decompensation, the patient required repeated assessment at the bedside, and complex medical decision- making. Patient is transferred to a level [facility]uma [facility]tr. as a level II trauma. Xray Xray : Xray: CXR Portable Interpretation: Normal, Reviewed Written Report (pelvis: Negative) CT CT : CT: Head no contrast Interpretation: Normal (cervical spine: Negative. Thoracic spine: Negative. Lumbar spine: L2 nondisplaced superior endplate fracture otherwise no acute processes.), Faxed Report SUDHA MEDRANO DO October 23, 2016 08:09
--- NOTE | 2016-10-23 08:15 | NUR ---
RADIOLOGY PT FROM RADIOLOGY PER CART
[2016-10-23 08:19] LABS: INR 1.4 (0.77-1.03); PROTHROMBIN TIME 15.4 SEC (9.48-12.52)
--- NOTE | 2016-10-23 08:30 | DI ---
Indication: ITS.REASON: fall, injury PROCEDURE: CT CERVICAL SPINE W/O CONTRAST: Encounter: Initial Comparison: None Technique: Axial CT images through the cervical spine were performed without contrast. Coronal and sagittal reformatted images were also obtained. Automated Exposure Control and Iterative Reconstruction dose reducing techniques were utilized. FINDINGS: The alignment of the cervical spine is normal. Multilevel degenerative changes are present. There is no evidence of acute fracture or subluxation of the cervical spine. The facet joints are well aligned with preservation of the intervertebral disk and facet joints. The atlantoaxial articulation, dens, and upper cervical spine demonstrate no subluxation. There is no evidence of significant spinal stenosis, foraminal compromise, or significant disk herniation. Postoperative changes in the occipital calvarium. IMPRESSION: No acute traumatic abnormality of the cervical spine. .
--- NOTE | 2016-10-23 08:31 | DI ---
Indication: ITS.REASON: fall PROCEDURE: CT HEAD W/O CONTRAST: Encounter: Initial Comparison: December 03, 2014 Technique: Axial CT images through the head were performed without contrast. Iterative Reconstruction dose reducing technique was utilized. FINDINGS: The ventricles are of normal size, shape, and configuration for the patient's age. There is no evidence of acute intracranial hemorrhage, midline displacement, or mass effect. There are scattered areas of low attenuation in the white matter which most likely represent changes of chronic microvascular ischemia. The CT attenuation of the brain parenchyma is otherwise normal within the cerebellum, brain stem, and cerebral hemispheres. The tympanic cavities and mastoid air cells are free of appreciable disease. There are no definite fractures of the skull base, calvarium, or visualized portion of the midface. Postoperative changes in the occipital calvarium. Prominent retrocerebellar CSF space is again seen. IMPRESSION: No CT evidence of acute traumatic intracranial injury. .
--- NOTE | 2016-10-23 08:47 | DI ---
Indication: ITS.REASON: fall PROCEDURE: CT LUMBAR SPINE W/O CONTRAST: Encounter: Initial Comparison: None Technique: Axial noncontrast CT imaging of the lumbar spine was performed with coronal and sagittal two-dimensional reformats. Automated Exposure Control and Iterative Reconstruction dose reducing techniques were utilized. FINDINGS: The alignment of the lumbar spine is normal for the patient's age. There is a small vertical lucency seen in the right superior endplate of L2. No additional area concerning for acute fracture. No traumatic subluxation of the lumbar spine is evident. The facet joints are well aligned with preservation of the intervertebral disk and facet joints. There are age appropriate degenerative changes within the intervertebral disks and facet joints in the lower lumbar region. There is no evidence of significant spinal stenosis, foraminal compromise, disk herniation, or epidural hematoma. IVC filter. IMPRESSION: Possible nondisplaced superior endplate fracture of L2. .
--- NOTE | 2016-10-23 08:50 | NUR ---
[facility] PT REQUESTING PAIN MEDICATION. DISCUSSED WITH DR MEDRANO AND NO ORDERS RECEIVED AT THIS TIME.
--- NOTE | 2016-10-23 08:55 | NUR ---
RADIOLOGY PT TO RADIOLOGY PER CART
--- NOTE | 2016-10-23 09:09 | DI ---
Indication: ITS.REASON: fall, injury PROCEDURE: CT THORACIC SPINE W/O CONTRAST: Encounter: Initial Comparison: CT lumbar spine from today: Technique: Axial noncontrast CT imaging of the thoracic spine was performed with coronal and sagittal two-dimensional reformats. Automated Exposure Control and Iterative Reconstruction dose reducing techniques were utilized. FINDINGS: Alignment of the thoracic spine is normal for the patient's age. There are minimal, age appropriate, degenerative changes within the intervertebral disk and facet joints in the thoracic spine. No fractures are evident in the thoracic spine. Nondisplaced superior endplate fractures seen on the right at L2. The vertebral bodies and facet joints are normally aligned. There is no evidence of significant spinal stenosis, foraminal compromise, epidural hematoma, or significant disk herniation. The paraspinal soft tissues and central spinal canal appear unremarkable. IMPRESSION: No acute traumatic abnormality of the thoracic spine. Nondisplaced right L2 superior endplate fracture. .
--- NOTE | 2016-10-23 09:10 | NUR ---
RADIOLOGY PT FROM RADIOLOGY PER CART
--- NOTE | 2016-10-23 09:20 | NUR ---
CONSULT DR MEDRANO TALKING TO DR LUNA
--- NOTE | 2016-10-23 09:25 | DI ---
Indication: [email or web address].REASON: fall injury PROCEDURE: PELVIS 1-2 VIEW DEDICATED PELV: Encounter: Initial Comparison: None Findings: There is no acute fracture, dislocation or malalignment identified. IVC filter noted. Impression: No acute osseous abnormality. .
--- NOTE | 2016-10-23 09:28 | DI ---
Indication: ITS.REASON: fall PROCEDURE: CHEST 1 VIEW: Encounter: Initial Comparison: August 05, 2016 Findings: The lungs are stable in appearance without new focal airspace consolidation. There is no pleural effusion or pneumothorax. The heart size, pulmonary vascularity and mediastinal contours are unchanged. IMPRESSION: Stable appearance of the chest without acute cardiopulmonary disease. .
--- NOTE | 2016-10-23 09:40 | NUR ---
TRANSFER CONSENT FOR TRANSFER SIGNED BY PT
[2016-10-23] MEDS ORDERED: ONDANSETRON ODT 4 MG TAB PO ONE (09:45)
[2016-10-23] MEDS ORDERED: MORPHINE SULFATE 4 MG SYRINGE IM ONE (09:45)
--- NOTE | 2016-10-23 09:48 | NUR ---
MEDICATIONS MORPHINE 4MG IM AND ZOFRAN 4MG ODT ADMINISTERED
[2016-10-23] MEDS ORDERED: CELE200C PO (09:51)
[2016-10-23] MEDS ORDERED: DICL75TA5 PO (09:53)
[2016-10-23] MEDS ORDERED: OXYC-541 PO (09:54)
[2016-10-23] MEDS ORDERED: LAMO100T12 PO (09:56)
[2016-10-23] MEDS ORDERED: ESOM20CA PO (09:57)
[2016-10-23] MEDS ORDERED: OXCA300T18 PO (09:59)
[2016-10-23] MEDS ORDERED: CODE118S2 PO (10:00)
[2016-10-23] MEDS ORDERED: ACET-62 PO (10:01)
--- NOTE | 2016-10-23 10:05 | NUR ---
REPORT REPORT TO DORI [facility] ONE CALL
--- NOTE | 2016-10-23 10:06 | NUR ---
[facility]SFER EMS CALLED FOR TRANSFER
--- NOTE | 2016-10-23 10:15 | NUR ---
[facility] PT RATES PAIN 3-4/10
--- NOTE | 2016-10-23 10:16 | NUR ---
REPORT REPORT TO [facility]
[2016-10-23 10:20] VITALS: BP 150/87; PULSE 84; RESP 20; TEMP 98.3; O2SAT 97
--- NOTE | 2016-10-23 10:20 | NUR ---
DEPARTURE PT LEFT DEPARTMENT IN CARE OF [facility]
== END 2016-10-23 10:20 | disposition short-term general hospital (02) ==
LOC: ED 07:13
DX: S32.029A Unspecified fracture of second lumbar vertebra, initial encounter for closed fracture (principal); R51 Headache; M54.2 Cervicalgia; W10.8XXA Fall (on) (from) other stairs and steps, initial encounter; Y93.89 Activity, other specified; Y92.008 Other place in unspecified non-institutional (private) residence as the place of occurrence of the external cause; Y99.8 Other external cause status
CPT/HCPCS: 36415; 70450; 71010; 72125; 72128; 72131; 72170; 85610; 96372; 99285; A9270